=== PATIENT | female | born 1990 | race Two or more races ===

== ENCOUNTER 2018-04-08 20:24 | Inpatient (IN) | payer BC ==
[2018-04-08 20:37] VITALS: BMI 43.4
[2018-04-08] MEDS ORDERED: Lactated Ringer's 1,000 ML IV ONE (20:40)
[2018-04-08 23:04] LABS: BASO % 0.2 % (0.0-2.0); EOS % 0.3 % (0.0-4.0); HEMOGLOBIN 10.9 g/dL (12.0-16.0); LYMPH # 1.6 K/uL (1.0-4.3); LYMPH % 14.5 % (20.0-40.0); MEAN CELL VOLUME 61.4 fl (81.0-99.0); MEAN CORPUSCULAR HEMOGLOBIN 19.5 pg (27.0-31.0); MEAN CORPUSCULAR HGB CONC 31.8 g/dL (33.0-37.0); MEAN PLATELET VOLUME 9.2 fl (7.2-11.7); MONO # 0.5 K/uL (0.0-0.8); MONO % 4.1 % (0.0-10.0); NEUT % 80.9 % (50.0-75.0); RBC 5.61 Mil/uL (3.80-5.20); RED CELL DISTRIBUTION WIDTH 17.9 % (11.5-14.5); WHITE BLOOD COUNT 11.1 K/uL (4.8-10.8)
--- NOTE | 2018-04-08 23:33 | OBADHP ---
Datetime: 04/08/2018 23:28 Admit Comment, IP Provider: 28-year-old admitted to labor and delivery for induction of lab or due to gestational diabetes. Patient currently taking 2.5 mg glyburide in the morning and 5 mg gly buride in the evening. Patient without complaints at this time. Patient denies any contractions, vagi nal bleeding, leakage of fluids. Patient reports good movement. Past medical history gestational diabetes, obesity Past surgical history denies Medications vitamins, glyburide No known drug allergies Social history no tobacco, drugs, alcohol Assessment: 39 weeks 4 days gestational age with gestational diabetes class II for induction of labor Plan: Admit for management of induction of labor Discussed plan with patient and all patient questions answered Cervidil placed vaginally Pelvic Type - PN: Adequate Extremities - PN: Normal Abdomen - PN: Normal Back - PN: Normal Lungs - PN: Normal Heart - PN: Normal HEENT - PN: Normal General - PN: Normal FHR - Baseline A Provider: 120s-130s Membranes, Provider: Intact Contraction Comments Provider: none Vital Signs Provider: Reviewed; Within Normal Limits IP Chief Complaint: Scheduled induction of labor NICHD Variability Prov Fetus A: Moderate 6-25bpm NICHD Accel Fetus A IP Provider: [id number] FHR Category Provider Fetus A: Category I NICHD Decel Fetus A IP Provider: None Dilatation, Provider: 0 Effacement, Provider: 0 Station, Provider: -4 Genitourinary Exam: Normal EGA AdmitDate IP: 39.4 IP Adm Impression: Term, intrauterine ; No Active Labor; Intact Membranes IP Admit Plan: Admit to unit; Initiate labor induction protocol
[2018-04-09] MEDS ORDERED: Nalbuphine HCL 10 mg/ml Ampule IVP PRN (02:33)
[2018-04-09] MEDS: Lactated Ringer's 1,000 ML IV SCH ×3 (07:21→14:20)
[2018-04-09] MEDS ORDERED: Fentanyl/Bupivacaine HCl 250 ML EPI ONE (09:18)
--- NOTE | 2018-04-09 12:18 | OBPN ---
Datetime: 04/09/2018 10:11 IP Progress Impression: Normal progression of labor IP Informed Consent Obtain: Vaginal Delivery IP Procedures: Sterile Vag Exam IP Progress Plan: Continue present management Membranes, Provider: Intact Contraction Comments Provider: q 6 mins FHR - Baseline A Provider: 125 IP Progress Note Comment: Pt feeling some contractions VE=3/50/-2, cervidil removed MPE=375 mod ho, +accels TOCO = dhruv q 6 mins A/P 1. Continue Cytotec for induction, will give 50mcg PO q 4 2. CEFM and toco 3. FS = 122, fasting. will recheck when patient is in active labor 4. Pt does not want any pain medication Vital Signs Provider: Reviewed; Within Normal Limits NICHD Accel Fetus A IP Provider: [id number] NICHD Variability Prov Fetus A: Moderate 6-25bpm Dilatation, Provider: 3 Effacement, Provider: 50 Station, Provider: -2 Datetime: 04/08/2018 23:28 FHR Category Provider Fetus A: Category I NICHD Decel Fetus A IP Provider: None
[2018-04-09] MEDS ORDERED: Oxytocin 30 units/LR 500ML 30 U/500 ML BAG IV ONE (14:17)
[2018-04-09] MEDS ORDERED: Oxycodone/Acetaminophen 5/325 mg Tab PO PRN (20:13)
[2018-04-09] MEDS ORDERED: Benzocaine/Menthol SPRAY TOP PRN (20:13)
[2018-04-09] MEDS ORDERED: ceFAZolin IV 2 gm in Dextrose 2 GM/50 ML BAG IVPB ONE (20:15)
--- NOTE | 2018-04-09 20:36 | OBDS ---
DELIVERY PERSONNEL Delivery Doctor: Reny Sumner MD Electromedical Equipment Technician: Isabella Patel RN Anesthesiologist: Felisha Stevens MD MATERNAL INFORMATION Delivery Anesthesia: Local; Epidural Medications in Delivery: pitocin Estimated Blood Loss (ml): 300 QBL Placenta Cultured: No RN Comments: Manual Removal Intact Provider Comments: of live male infant over intact perineum, body cord x 1, BRAYDON followed by ricky mills and rest of , mouth and nose suctioned, 7lbs 8 oz, 9/9, cord clamped and cut, pl aced on mother's chest, placenta delivered manually, ancef given, fundus firm, 3a laceration repaired with 2-0 vicryl rapide, quantified blood loss 300mL, pt otherwise tolerated procedure well LABOR SUMMARY EDC: 04/11/2018 00:00 No. Babies in Womb: 1 Attempted: No Labor Anesthesia: Epidural LABOR INFORMATION Reason for Induction: Maternal Diabetes Complete Dilatation: 04/09/2018 19:45 Cervical Ripening Agents: Cytotec @ Oxytocin: Induction Group B Beta Strep: Negative Steroids Given: None Reason Steroids Not Administered: Not Applicable MEMBRANES Membranes Rupture Method: Spontaneous Rupture of Membranes: 04/09/2018 18:40 Amniotic Fluid Color: Clear Amniotic Fluid Amount: Moderate Amniotic Fluid Odor: Normal VAGINAL DELIVERY Episiotomy: Median Laceration Extension: Third Degree Laceration Type: Perineal Other Laceration: 3A Laceration Repair: Yes Initial Vag Sponge Count: 5 Final Vag Sponge Count: 5 Initial Vag Sharps Count: 3 Final Vag Sharps Count: 3 Sponge Count Correct: N/A Sharps Count Correct: N/A PRESENTATION/POSITION BABY A Presentation: Cephalic
[2018-04-10] MEDS: Oxycodone/Acetaminophen 5/325 mg Tab PO PRN ×4 (03:26→22:34)
[2018-04-10] MEDS: Benzocaine/Menthol SPRAY TOP PRN (03:26)
--- NOTE | 2018-04-10 07:46 | OBPPN ---
Datetime: 04/10/2018 07:38 PP Pain Prov: Within normal limits PP Nausea Prov: Denies PP Abdomen/Uterus Prov: Normal PP Lochia Prov: Normal PP Vulva/Perineum Prov: Normal PP Extremities Prov: Normal PP Progress Prov: Normal PP Impression Prov: Normal progression PP Plan Prov: Continue present management PP Progress Note Prov: PPD 1 s/p , c/o pain at her stitches, breast and bottle feeding Motrin, percocet, dermaplast, sitz baths for pain Vital Signs Provider PP: Reviewed
[2018-04-10] MEDS: Multivitamin With Minerals Tab PO SCH (08:04)
[2018-04-10 08:21] LABS: BASO % 0.3 % (0.0-2.0); EOS # 0.1 K/uL (0.0-0.7); EOS % 0.6 % (0.0-4.0); HEMOGLOBIN 9.9 g/dL (12.0-16.0); LYMPH # 1.8 K/uL (1.0-4.3); LYMPH % 14.3 % (20.0-40.0); MEAN CELL VOLUME 60.8 fl (81.0-99.0); MEAN CORPUSCULAR HEMOGLOBIN 19.4 pg (27.0-31.0); MEAN PLATELET VOLUME 8.6 fl (7.2-11.7); MONO # 0.6 K/uL (0.0-0.8); MONO % 4.4 % (0.0-10.0); NEUT # 10.2 K/uL (1.8-7.0); NEUT % 80.4 % (50.0-75.0); RBC 5.1 Mil/uL (3.80-5.20); RED CELL DISTRIBUTION WIDTH 17.6 % (11.5-14.5); WHITE BLOOD COUNT 12.6 K/uL (4.8-10.8)
[2018-04-10] MEDS ORDERED: Multivitamin With Minerals Tab PO SCH (09:00)
[2018-04-11] MEDS: Benzocaine/Menthol SPRAY TOP PRN (08:11)
[2018-04-11] MEDS: Multivitamin With Minerals Tab PO SCH (08:11)
--- NOTE | 2018-04-11 11:09 | OBPPN ---
Datetime: 04/11/2018 11:03 PP Pain Prov: Within normal limits PP Nausea Prov: Denies PP Flatus Prov: Yes PP Breasts Prov: Normal PP Heart Prov: Normal PP Lungs Prov: Normal PP Abdomen/Uterus Prov: Normal PP Lochia Prov: Normal PP Vulva/Perineum Prov: Normal PP CVA Tenderness Prov: Normal PP Extremities Prov: Normal PP Comments Phys Exam Prov: Fundus firm under umbilicus PP Impression Prov: Normal progression PP Plan Prov: Continue present management PP Progress Note Prov: Patient denies CP, no SOB, no N/V, tolerating PO diet, ambulating/voiding wel l, mild lochia, abdominal pain tolerable with meds A/P PPD #1 1. Discharge pt home 2. Discharge instructions reviewed IP PP Procedures: None Vital Signs Provider PP: Reviewed; Within Normal Limits
--- NOTE | 2018-04-11 11:09 | OBDCSUM ---
Datetime: 04/11/2018 11:08 Discharged to, Provider: Home Follow up at, Provider: OB Disch Instr Activity: Normal activity Disch Instr Diet: Regular Discharge Instructions, Provider: Routine instructions given Discharge Diagnosis, Provider: Term Delivered Discharge Time: 04/11/2018 11:08 Follow up in weeks, Provider: 6 wks Disch Referrals: None Contraception discussed, Prov: Yes
[2018-04-11 19:31] VITALS: BP 121/70; PULSE 94; RESP 20; TEMP 97.7; O2SAT 100
== END 2018-04-11 15:15 | disposition home or self-care (01) | DRG 775 ==
LOC: H.L&D 20:40 → H.OB/GYN 04-09 23:30
PROVIDERS: ADMIT Obstetrics & Gynecology; ATTEND Obstetrics & Gynecology
PROC: 4A1HXCZ Monitoring of Products of Conception, Cardiac Rate, External Approach (ICD-10-PCS; 2018-04-08)
PROC: 10E0XZZ Delivery of Products of Conception, External Approach (ICD-10-PCS; principal; 2018-04-09)
PROC: 0DQR0ZZ Repair Anal Sphincter, Open Approach (ICD-10-PCS; 2018-04-09)
PROC: 0W8NXZZ Division of Female Perineum, External Approach (ICD-10-PCS; 2018-04-09)
DX: O24.425 Gestational diabetes mellitus in childbirth, controlled by oral hypoglycemic drugs (principal); O70.21 Third degree perineal laceration during delivery, IIIa; Z68.41 Body mass index [BMI] 40.0-44.9, adult; O99.214 Obesity complicating childbirth; E66.9 Obesity, unspecified; Z37.0 Single live birth; Z3A.39 39 weeks gestation of pregnancy